=== PATIENT | female | born 1995 | race Caucasian/White ===

== ENCOUNTER → 2019-07-23 | Outpatient (CLI) | payer BC, OTHER | LOC: M LAB 10:30 | PROVIDERS: ATTEND Physician Assistant | DX: Z11.9 Encounter for screening for infectious and parasitic diseases, unspecified (principal) ==

== ENCOUNTER → 2022-02-23 | Outpatient (REF) | payer OTHER | LOC: M PLALAB 08:08 | PROVIDERS: ATTEND Nurse Practitioner Family | DX: Z12.4 Encounter for screening for malignant neoplasm of cervix (principal) | CPT/HCPCS: 87624; G0123 ==

== ENCOUNTER → 2022-07-19 | Outpatient (CLI) | payer OTHER ==
[2022-07-19 14:20] LABS: BASO # 0.1 10^3/uL (0.0-0.2); EOS # 0.2 10^3/uL (0.0-0.5); EOS % 4.1 % (0.0-3.0); HEMOGLOBIN 13.6 g/dl (12.0-15.5); LYMPH # 2.3 10^3/uL (1.5-5.0); LYMPH % 47.7 % (24.0-44.0); MEAN CORPUSCULAR HEMOGLOBIN 29.4 pg (27.0-33.0); MEAN CORPUSCULAR HGB CONC 33.2 g/dl (32.0-36.5); MEAN CORPUSCULAR VOLUME 88.7 fl (80.0-96.0); MONO # 0.4 10^3/uL (0.0-0.8); MONO % 7.6 % (2.0-8.0); NEUTROPHILS # 1.9 10^3/uL (1.5-8.5); NEUTROPHILS % 39.4 % (36.0-66.0); PLATELET COUNT, AUTOMATED 271 10^3/uL (150-450); RED BLOOD COUNT 4.62 10^6/uL (4.00-5.40); WHITE BLOOD COUNT 4.8 10^3/uL (4.0-10.0)
[2022-07-19 14:27] LABS: ALBUMIN 3.5 G/DL (3.2-5.2); ALKALINE PHOSPHATASE 71 U/L (46-116); ALT/SGPT 22 U/L (7.0-40); AST/SGOT 17 U/L (<34); BILIRUBIN,TOTAL 0.8 MG/DL (0.3-1.2); BLOOD UREA NITROGEN 16 MG/DL (9-23); CALCIUM LEVEL 8.9 MG/DL (8.5-10.1); CARBON DIOXIDE LEVEL 26 MMOL/L (20-31); CHLORIDE LEVEL 105 MMOL/L (98-107); CHOLESTEROL LEVEL 197 MG/DL (<200); CHOLESTEROL RISK RATIO 2.28 (<5); CREATININE FOR GFR 0.83 MG/DL (0.55-1.30); GLOMERULAR FILTRATION RATE > 60.0 (>60); GLUCOSE, FASTING 84 MG/DL (60-100); HDL CHOLESTEROL 86.3 MG/DL (>40); LDL CHOLESTEROL 98.7 MG/DL (<100); NON-HDL-C 110.7 MG/DL; POTASSIUM SERUM 4.1 MMOL/L (3.5-5.1); SODIUM LEVEL 138 MMOL/L (136-145); TOTAL 25(OH) VITAMIN D 29.5 NG/ML (20.0-100.0); TOTAL PROTEIN 6.3 G/DL (5.7-8.2); TRIGLYCERIDES LEVEL 60 MG/DL (<150)
[2022-07-19 14:28] LABS: THYROID STIMULATING HORMONE 0.966 uIU/ML (0.55-4.78)
[2022-07-19 14:29] LABS: FREE T4 1.17 NG/DL (0.89-1.76)
[2022-07-19 14:40] LABS: HEMOGLOBIN A1c 4.8 % (4.0-6.0)
== END ==
LOC: M PLALAB 09:25
PROVIDERS: ATTEND Family Medicine
DX: E55.9 Vitamin D deficiency, unspecified (principal); Z13.29 Encounter for screening for other suspected endocrine disorder; Z13.220 Encounter for screening for lipoid disorders

== ENCOUNTER → 2023-05-24 | Outpatient (REF) | payer OTHER | LOC: M SFHCWAGY 17:01 | PROVIDERS: ATTEND Nurse Practitioner Family | DX: Z12.4 Encounter for screening for malignant neoplasm of cervix (principal) | CPT/HCPCS: 87624; G0123 ==

== ENCOUNTER → 2024-02-04 | Outpatient (CLI) | payer OTHER ==
[2024-02-04 06:32] LABS: BASO # 0.1 10^3/uL (0.0-0.2); EOS # 0.3 10^3/uL (0.0-0.5); EOS % 4.7 % (0.0-3.0); HEMATOCRIT 41.5 % (36.0-47.0); HEMOGLOBIN 13.6 g/dl (12.0-15.5); LYMPH # 2.4 10^3/uL (1.5-5.0); LYMPH % 40.8 % (24.0-44.0); MEAN CORPUSCULAR HEMOGLOBIN 28.6 pg (27.0-33.0); MEAN CORPUSCULAR HGB CONC 32.8 g/dl (32.0-36.5); MEAN CORPUSCULAR VOLUME 87.4 fl (80.0-96.0); MONO # 0.5 10^3/uL (0.0-0.8); MONO % 7.8 % (2.0-8.0); NEUTROPHILS # 2.6 10^3/uL (1.5-8.5); NEUTROPHILS % 45.5 % (36.0-66.0); PLATELET COUNT, AUTOMATED 283 10^3/uL (150-450); RED BLOOD COUNT 4.75 10^6/uL (4.00-5.40); WHITE BLOOD COUNT 5.8 10^3/uL (4.0-10.0)
[2024-02-04 07:06] LABS: ALBUMIN 3.8 G/DL (3.2-5.2); ALKALINE PHOSPHATASE 71 U/L (35-104); ALT/SGPT 22 U/L (7.0-40); AST/SGOT 11 U/L (<34); BILIRUBIN,TOTAL 0.7 MG/DL (0.3-1.2); BLOOD UREA NITROGEN 15 MG/DL (9-23); CALCIUM LEVEL 9.7 MG/DL (8.5-10.1); CARBON DIOXIDE LEVEL 26 MMOL/L (20-31); CHLORIDE LEVEL 110 MMOL/L (98-107); CHOLESTEROL LEVEL 212 MG/DL (<200); CHOLESTEROL RISK RATIO 2.69 (<5); CREATININE FOR GFR 0.83 MG/DL (0.55-1.30); GLOMERULAR FILTRATION RATE > 60.0 (>60); GLUCOSE, FASTING 92 MG/DL (60-100); HDL CHOLESTEROL 78.8 MG/DL (>40); LDL CHOLESTEROL 119.8 MG/DL (<100); MAGNESIUM LEVEL 2.1 MG/DL (1.8-2.4); NON-HDL-C 133.2 MG/DL; POTASSIUM SERUM 4.3 MMOL/L (3.5-5.1); SODIUM LEVEL 142 MMOL/L (136-145); TOTAL PROTEIN 6.8 G/DL (5.7-8.2); TRIGLYCERIDES LEVEL 67 MG/DL (<150)
[2024-02-04 07:08] LABS: FREE T4 1.16 NG/DL (0.89-1.76); THYROID STIMULATING HORMONE 1.376 uIU/ML (0.55-4.78); VITAMIN B12 LEVEL 444 PG/ML (211-911)
[2024-02-04 07:09] LABS: FOLATE > 24.0 NG/ML (>5.4)
== END ==
LOC: M LAB 06:03
PROVIDERS: ATTEND Physician Assistant
DX: Z82.49 Family history of ischemic heart disease and other diseases of the circulatory system (principal)

== ENCOUNTER → 2024-02-24 | Outpatient (CLI) | payer OTHER ==
[~2024-02-24] MED LIST: ISOVUE-370 76% 100ML VIAL As Ordered ONE
== END ==
LOC: M RAD 07:42
PROVIDERS: ATTEND Physician Assistant
DX: R59.0 Localized enlarged lymph nodes (principal)
CPT/HCPCS: 71260; Q9967

== ENCOUNTER → 2024-05-04 | Outpatient (REF) | payer OTHER ==
[2024-05-04 20:45] LABS: Trichomonas vaginalis (AMP) NOT DETECTED (NEGATIVE)
[2024-05-04 21:09] LABS: GC DNA AMPLIFICATION NEGATIVE (NEGATIVE)
== END ==
LOC: M SFHCWAGY 17:40
PROVIDERS: ATTEND Nurse Practitioner Family
DX: Z34.80 Encounter for supervision of other normal pregnancy, unspecified trimester (principal)

== ENCOUNTER → 2024-05-19 | Outpatient (REF) | payer OTHER ==
[2024-05-19 17:50] LABS: HEMATOCRIT 37.7 % (36.0-47.0); HEMOGLOBIN 12.4 g/dl (12.0-15.5); MEAN CORPUSCULAR HGB CONC 32.9 g/dl (32.0-36.5); MEAN CORPUSCULAR VOLUME 88.1 fl (80.0-96.0); PLATELET COUNT, AUTOMATED 238 10^3/uL (150-450); RED BLOOD COUNT 4.28 10^6/uL (4.00-5.40); WHITE BLOOD COUNT 11.2 10^3/uL (4.0-10.0)
[2024-05-19 18:45] LABS: HIV 1&2 SCREEN NEGATIVE (NEGATIVE)
[2024-05-19 18:54] LABS: HEPATITIS C VIRUS ABY INDEX 0.03 INDEX (<0.8)
== END ==
LOC: M LAB 16:45
PROVIDERS: ATTEND Nurse Practitioner Family
DX: Z34.80 Encounter for supervision of other normal pregnancy, unspecified trimester (principal)

== ENCOUNTER → 2024-07-22 | Outpatient (CLI) | payer OTHER | LOC: M RAD 11:34 | PROVIDERS: ATTEND Specialist | DX: Z34.82 Encounter for supervision of other normal pregnancy, second trimester (principal); Z3A.19 19 weeks gestation of pregnancy ==

== ENCOUNTER → 2024-09-10 | Outpatient (CLI) | payer OTHER ==
[2024-09-10 14:05] LABS: PLATELET COUNT, AUTOMATED 206 10^3/uL (150-450)
[2024-09-10 14:07] LABS: GLUCOSE CHALLENGE TEST 1 HOUR 88 MG/DL (LESS THAN 140)
[2024-09-10 14:36] LABS: HIV 1&2 SCREEN NEGATIVE (NEGATIVE)
[2024-09-10 14:44] LABS: HEPATITIS C VIRUS ABY INDEX 0.11 INDEX (<0.8)
== END ==
LOC: M PLALAB 08:50
PROVIDERS: ATTEND Advanced Practice Midwife
DX: Z34.02 Encounter for supervision of normal first pregnancy, second trimester (principal)

== ENCOUNTER → 2024-11-19 | Outpatient (REF) | payer OTHER | LOC: M SFHCWAGY 12:53 | PROVIDERS: ATTEND Advanced Practice Midwife | DX: Z34.03 Encounter for supervision of normal first pregnancy, third trimester (principal) ==

== ENCOUNTER 2024-12-09 02:58 | Inpatient (IN) | payer OTHER ==
[2024-12-09] VITALS (7 sets, daily range): BP systolic 124–138; BP diastolic 64–91; O2SAT 97–99
[~2024-12-09] VITALS: Ht 165.1 cm; Wt 92.6 kg
[2024-12-09] MEDS ORDERED: ACET500P3 PO (03:33)
[2024-12-09] MEDS ORDERED: MULTTAB20 PO (03:33)
[2024-12-09] MEDS: LACTATED RINGER'S 1000 ML IV STA (03:47)
[2024-12-09 04:04] LABS: PLATELET COUNT, AUTOMATED 237 10^3/uL (150-450)
[2024-12-09 04:59] LABS: HIV 1&2 SCREEN NEGATIVE (NEGATIVE)
[2024-12-09 05:06] LABS: HEPATITIS C VIRUS ABY INDEX 0.02 INDEX (<0.8)
[2024-12-09] MEDS: OXYTOCIN DRIP 30 UNITS in IV 1 EA IV PRN (06:31)
[2024-12-09] MEDS: LIDOCAINE 1% MDV 20 ML VIAL INFIL PRN (06:31)
[2024-12-09] MEDS ORDERED: MORPHINE 4 MG/ML 1 ML VIAL As Ordered ONE (06:51)
[2024-12-09] MEDS ORDERED: ONDANSETRON 4MG 2ML VIAL As Ordered ONE (06:51)
[2024-12-09] MEDS: ONDANSETRON 4MG 2ML VIAL IV ONE (07:01)
[2024-12-09] MEDS: MORPHINE 4 MG/ML 1 ML VIAL IV ONE (07:04)
[2024-12-09] MEDS ORDERED: ACETAMINOPHEN 325 MG TAB PO PRN (07:35)
[2024-12-09] MEDS ORDERED: METHYLERGONOVINE MALEATE 0.2 MG TAB PO PRN (07:35)
[2024-12-09] MEDS ORDERED: IBUPROFEN 800 MG TAB PO PRN (07:35)
[2024-12-09] MEDS ORDERED: ACETAMINOPHEN 500 MG TAB PO PRN (07:35)
[2024-12-09] MEDS: LIDOCAINE 1% MDV 20 ML VIAL INFIL ONE (07:35)
[2024-12-09] MEDS: OXYTOCIN DRIP 30 UNITS in IV 1 EA IV SCH (07:35)
[2024-12-09] MEDS: IBUPROFEN 600 MG TAB PO PRN (08:10)
[2024-12-09] MEDS: PRENATAL VITAMINS CHEWABLE TABLET PO SCH (09:00)
[2024-12-09] MEDS: DOCUSATE SODIUM 100 MG CAPSULE PO PRN (11:32)
[2024-12-09] MEDS: DIBUCAINE 1% OINTMENT 30 GM TOP PRN (11:32)
[2024-12-10 05:44] VITALS: BP 100/56; O2SAT 100
[2024-12-10 07:03] LABS: PLATELET COUNT, AUTOMATED 215 10^3/uL (150-450)
[2024-12-10] MEDS: RHOGAM 300MCG (1500IU) INJ IM SCH (07:20)
[2024-12-10 18:00] VITALS: BP 121/73; O2SAT 97
[2024-12-11 03:15] VITALS: BP 124/72; O2SAT 97
[2024-12-11 06:30] VITALS: BP 134/80; O2SAT 99
[2024-12-11] MEDS: MEASLES,MUMPS,RUBELLA VACCINE INJ (MMR-II) SC.IMMUN ONE (08:46)
== END 2024-12-11 13:25 | disposition home or self-care (01) | DRG 807 ==
LOC: M LDO 02:58 → M LDI 03:10 → M OBS 08:25
PROVIDERS: ADMIT Student in an Organized Health Care Education/Training Program; ATTEND Student in an Organized Health Care Education/Training Program
PROC: 10E0XZZ Delivery of Products of Conception, External Approach (ICD-10-PCS; principal; 2024-12-09)
PROC: 0KQM0ZZ Repair Perineum Muscle, Open Approach (ICD-10-PCS; 2024-12-09)
DX: O70.1 Second degree perineal laceration during delivery (principal); Z37.0 Single live birth; Z3A.39 39 weeks gestation of pregnancy

== ENCOUNTER → 2025-01-20 | Outpatient (REF) | payer OTHER ==
[~2025-01-20] MED LIST changes: +ACET500P3 PO; -ISOVUE-370 76% 100ML VIAL As Ordered ONE; +MULTTAB20 PO
== END ==
LOC: M PLALAB 11:23
PROVIDERS: ATTEND Student in an Organized Health Care Education/Training Program
DX: N89.8 Other specified noninflammatory disorders of vagina (principal)